=== PATIENT | male | born 1980 | race Caucasian/White ===

== ENCOUNTER 2024-04-07 03:05 | Emergency (ER) | payer SELFPAY ==
--- NOTE | ~2024-04-07 | XR_ITS ---
Portable chest x-ray Comparison: None Clinical History: Fever Findings: Lungs are clear, without focal consolidation or pleural effusion. Cardiomediastinal silho uette is unremarkable. Bones and soft tissues are unremarkable. Impression: Normal chest. Reviewed, dictated and finalized at location M. Impression: Normal chest.
[2024-04-07 03:08] VITALS: BP 117/78; PULSE 89; RESP 17; TEMP 37; O2SAT 98
[2024-04-07] MEDS: ACETAMINOPHEN 500 MG TABLET 1000 MG PO (03:50)
[2024-04-07 04:09] LABS: Influenza A QL RT-PCR Negative (Negative); Influenza B QL RT-PCR Negative (Negative); RSV RNA, RT-PCR Negative (Negative); SARS-CoV-2 RNA PCR Positive (Negative)
--- NOTE | 2024-04-07 04:14 | ED.FEVER ---
HPI - Fever General Chief Complaint: Fever Stated Complaint: fever Time Seen by Provider: 04/07/24 03:14 History of Present Illness HPI Narrative: Patient is a 43-year-old male who presents to the emergency department this morning complaining of a headache and a fever at home. Patient did not have a documented fever in our emergency department. He states the symptoms started today. Patient initially went to an urgent care prior to arrival here, however, the wait was so long so he decided to come here for further evaluation appointed he denies any additional symptoms including shortness of breath, chest pain, nausea, vomiting, abdominal pain, urinary symptoms including dysuria or hematuria. Patient admits that he has been around people that are sick with COVID. No additional symptoms or concerns at this time. Related Data Allergies Allergy/AdvReac Type Severity Reaction Status Date / Time No Known Allergies Allergy Verified 04/07/24 03:17 Review of Systems Review of Systems: All systems are reviewed and are negative unless stated otherwise in the HPI. Exam Narrative: General: Alert, awake, afebrile, in no acute distress. HEENT: PERRL, no rhinorrhea, no post nasal drip, oropharynx clear. Cardiovascular: Regular rate and rhythm, no murmurs, rubs or gallops, no peripheral edema. Respiratory: Clear to auscultation bilaterally, no tachypnea, no wheezing, no rhonchi, no rubs, no respiratory distress. Abdomen: Soft, nontender, nondistended, no rebound, no guarding, no peritoneal signs. Musculoskeletal: No joint swelling or deformity, normal muscle tone. Skin: No rashes or petechia, no signs of infection. Neurological: Alert and oriented to person, place, and time. Follows all commands. No focal deficits, speech is clear and fluent. Course Vital Signs Vital signs: Vital Signs Temperature 98.6 F 04/07/24 03:08 Pulse Rate 89 04/07/24 03:08 Respiratory Rate 17 04/07/24 03:08 Blood Pressure 117/78 04/07/24 03:08 Pulse Oximetry 98 04/07/24 03:08 Oxygen Delivery Room Air 04/07/24 03:08 Temperature 98.6 F 04/07/24 03:08 Pulse Rate 89 04/07/24 03:08 Respiratory Rate 17 04/07/24 03:08 Blood Pressure 117/78 04/07/24 03:08 Pulse Oximetry 98 04/07/24 03:08 Oxygen Delivery Room Air 04/07/24 03:08 MDM - Fever MDM Narrative Medical decision making narrative: The patient was evaluated by myself in the emergency department. History is obtained from patient who is an independent historian and physical exam was performed. External medical records were reviewed at this time. Viral swabs were obtained at this time and patient did test positive for COVID. Patient was administered 1 g of oral Tylenol for headache. Imaging studies obtained included CXR which was independently interpreted by me revealing no acute process, which is pending final radiology interpretation. Differential diagnosis considerations include acute viral syndrome including COVID/influenza/RSV and infectious process such as pneumonia. Comorbidities impacting this visit include none. I have evaluated and discussed social determinants of health with the patient that could potentially impact subsequent diagnosis and treatment plans. On repeat assessment of the patient, reevaluation revealed that the patient is doing well and is in no acute distress. Patient symptoms have improved since he arrived to our emergency department. Repeat vital signs were all reviewed and noted to be stable. Differential diagnosis and treatment plan were discussed with the patient at bedside. Patient agrees with discussion and after shared medical decision making agrees with discharge. All questions were answered to the patient's satisfaction. Patient will follow up with his PCP in 3-5 days. Patient was provided with strict return precautions and instructed to return to the emergency department if any new or worsening symptoms develop. The patient w
[2024-04-07 04:20] VITALS: TEMP 37.6
[2024-04-07 04:28] VITALS: BP 112/75; PULSE 95; RESP 18; TEMP 37.6; O2SAT 98
== END 2024-04-07 04:35 | disposition home or self-care (01) ==
PROVIDERS: Emergency Provider Emergency Medicine
DX: U07.1 COVID-19 (principal)
CPT/HCPCS: 71045; 87637; 99283; A4565; A9270

== ENCOUNTER 2024-10-25 17:12 | Observation (INO) | payer SELFPAY ==
--- NOTE | ~2024-10-25 | XR_ITS ---
XR chest 2V DATE: 10/25/2024 17:46 INDICATION: Chest pain TECHNIQUE: AP and lateral views COMPARISON: 04/07/2024 portable AP chest FINDINGS: There is minimal atelectasis or infiltrate at the lung bases. The lungs are otherwise clear . No pleural effusion or pulmonary congestion or pneumothorax. Normal heart size. No hilar or mediastinal enlargement. Minimal thoracic levoscoliosis. IMPRESSION: Minimal infiltrate or atelectasis at the lung bases Reviewed, dictated and finalized at location [facility]. ER [employer]
--- NOTE | ~2024-10-25 | CT_ITS ---
EXAMINATION: CT abdomen pelvis w con DATE: 10/27/2024 10:10 INDICATION: Cancer. TECHNIQUE: Computed tomography (CT) of the abdomen and pelvis was performed with 100 mL Omnipaque 350 intravenous contrast. Automated exposure control and iterative reconstruction technique were employe d. The dose-length product was 301.15 mGy-cm. COMPARISON: Chest CT 10/25/2024 FINDINGS: The visualized portions of lung bases demonstrate mild atelectasis. There are multiple scat tered nodules in the lungs measuring up to 7 mm. No pleural effusion. The heart size is normal. No pe ricardial effusion. The liver, gallbladder, spleen, pancreas, adrenal glands, and kidneys are normal. There are no dilated loops of bowel. The appendix is normal. There are no pathologically enlarged ly mph nodes. There is no free intraperitoneal fluid. There is a left inguinal hernia containing fat. Th ere is severe lower lumbar spondylosis. IMPRESSION: 1. Pulmonary nodules measuring up to 7 mm, which may be granulomatous disease or less likely metastat ic disease. Noncontrast low-dose chest CT is recommended in 3 months. Reviewed, dictated and finalized at location A. EXPERIENCE ARCHITECT IMPRESSION: 1. Pulmonary nodules measuring up to 7 mm, which may be granulomatous disease o r less likely metastatic disease. Noncontrast low-dose chest CT is recommended in 3 months.
--- NOTE | ~2024-10-25 | CT_ITS ---
EXAMINATION: CTA chest DATE: 10/25/2024 18:08 INDICATION: Sudden onset of right back and chest pain TECHNIQUE: Computed tomography angiography (CTA) of the chest was performed with 100 mL Omnipaque-350 intravenous contrast timed to evaluate the pulmonary arteries. Coronal maximum intensity projection 3D-reconstructions were created by the technologist. Automated exposure control and iterative reconst ruction technique were employed. Exam dose: 288.92 mGy-cm total exam DLP. COMPARISON: 10/25/2024 2 view chest FINDINGS: There is diagnostic contrast enhancement of the pulmonary arteries and no evidence of pulmo nary embolism. There are numerous scattered bilateral pulmonary nodules, the largest situated in the superior segmen t of the right lower lobe, measuring approximately 8 x 13.4 mm dimension. The remaining multiple nodu les are subcentimeter size. Differential diagnosis includes septic emboli, granulomatous or other chastity terial or fungal infectious process versus metastatic disease. There is mild bilateral dependent and basilar lower lobe atelectasis or infiltrate. Normal heart size. No pericardial or pleural effusion. No thoracic aortic aneurysm or dissection. No hilar or mediastinal mass lesion or lymphadenopathy. Normal size and homogeneous enhancement of the thyroid gland. No hepatic space-occupying mass lesion. The gallbladder is unremarkable. No bile duct or pancreatic d uct dilatation. No pancreatic mass lesion or calcification is noted. Normal morphology of the adrenal glands. No renal mass lesion or renal calculus. Normal caliber of the abdominal aorta. No upper or mid abdominal mass lesion or adenopathy or ascites . There is prominent degenerative disc disease at C6-7. No suspicious osteolytic or osteoblastic lesions are noted. IMPRESSION: No evidence of pulmonary arterial embolism Numerous bilateral pulmonary nodules; differential diagnosis includes septic emboli, or other infecti ous or metastatic process. Mild bilateral dependent and basilar lower lobe infiltrate or atelectasis Reviewed, dictated and finalized at [facility]. Reviewed, dictated and finalized at location A. RAGE STEWARD IMPRESSION: No evidence of pulmonary arterial embolism Numerous bilateral pulmonary nodules; differential diagnosis includes septic em boli, or other infectious or metastatic process. Mild bilateral dependent and basilar lower lobe infiltrate or atelectasis
--- NOTE | 2024-10-25 17:14 | ECG_ITS ---
Test Date: 2024-10-25 17:21:37 Measurements Intervals [place] Rate: 69 P: 62 AR: 152 QRS: 79 QRSD: 100 T: 67 QT: 378 QTc: 405 Interpretive Statements SINUS RHYTHM POSSIBLE LEFT ATRIAL ENLARGEMENT [-0.1mV P-WAVE IN V1/V2] No previous ECG available for comparison Electronically Signed On 10-25-2024 21:07:33 LINING FOLDER by Toby Hall M.D.
[2024-10-25 17:26] VITALS: BP 141/82; PULSE 74; RESP 14; TEMP 36.6; O2SAT 100
--- NOTE | 2024-10-25 17:28 | ED.CHESTPAIN ---
HPI - Chest Pain General Chief Complaint: Chest Pain Stated Complaint: CP Time Seen by Provider: 10/25/24 17:21 History of Present Illness HPI narrative: 44-year-old otherwise healthy male with no pertinent past medical history presenting to the emergency department for sudden-onset right-sided back pain radiating towards his chest. 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 Had to pulley worker and had some difficulty getting out of a car. Denies any cardiac history, no aortic history to his knowledge, no family history of any sudden cardiac disease or . Denies any nauseousness or vomiting but describes a pleuritic chest pain only takes deep breath. No abdominal pain, weakness in the limbs. Was otherwise in his normal state of health. Denies any car accidents, trauma or injury to the area. Related Data Allergies Allergy/AdvReac Type Severity Reaction Status Date / Time No Known Allergies Allergy Verified 04/07/24 03:17 Review of Systems Review of Systems: As reviewed above in HPI Exam Narrative: GENERAL: Uncomfortable appearing but able to answer questions, examining pleuritic chest pain, leaning forward during exam HEAD: [Normocephalic, atraumatic.] EYES: [PERRLA and EOMI.] ENT: Nares clear, no rhinorrhea or epistaxis. Mucous membranes moist. NECK: Supple. CHEST: [Clear to auscultation. No respiratory distress.] No crepitus with palpation of the chest wall, pain is nonreproducible with palpation in the chest or rib cage HEART: [Regular rate and rhythm]. No murmur heard. 2+ peripheral pulses in the upper and lower extremities, warm extremities ABDOMEN: [Soft, nondistended], [nontender], [No rigidity or guarding] EXTREMITIES: Normal range of motion. [No edema.] SKIN: Warm, dry, no rash. NEURO: [No focal deficits]. Alert and oriented [x3.] PSYCH: [Normal mood and affect.] Course Vital Signs Vital signs: Vital Signs Temperature 36.6 C 10/25/24 17: Pulse Rate 74 10/25/24 17:26 Respiratory Rate 14 10/25/24 17:26 Blood Pressure 141/82 H 10/25/24 17:26 Pulse Oximetry 100 10/25/24 17:26 Oxygen Delivery Room Air 10/25/24 17:26 Temperature 36.6 C 10/25/24 17:26 Pulse Rate 83 10/25/24 19:57 Respiratory Rate 14 10/25/24 19:57 Blood Pressure 115/79 10/25/24 19:57 Pulse Oximetry 99 10/25/24 19:57 Oxygen Delivery Room Air 10/25/24 17:40 MDM - Chest Pain MDM Narrative Medical decision making narrative: 44-year-old male with no pertinent past medical history presents with sudden-onset right-sided back pain radiating towards his chest. Nontraumatic in nature, not doing anything strenuous and was driving his car when he suddenly had the symptoms start just prior to arrival. No cardiac history to his knowledge. He has pain starting in the back radiating straight through to his chest on the right side. No left-sided symptoms. Symmetric pulses in both arms and legs with warm extremities. He appears uncomfortable and is hunched over during the examination with pain exacerbated with deep breathing. He has clear lung sounds throughout both lung sultana. No tachycardia, hypoxia fever but he is slightly hypertensive with a blood pressure 141/82. Given patient's sudden-onset symptomatology and right-sided pain without any strenuous or traumatic injury considerations present for intrathoracic process such as a pneumothorax, costochondritis, less likely ACS, acute aortic pathology or aortic syndrome also possible although he has no risk factors for this. Patient was given IV Dilaudid and Zofran as well as workup ordered with CBC, CMP, troponin, EKG, CT angiography of his chest. Patient was re-evaluated and still having pain, given morphine at this time. Workup shows no leukocytosis or anemia. Normal platelets, normal renal and hepatic function panel. Negative troponin, normal coags. Chest x-ray shows potential bibasilar infiltrates versus atelectasis at the bases. Overall no solitary consolidations congestion or pneumothorax. Confirmed by Radiology. CT angiography shows no evidence of pulmonary arterial embolism but there are numerous bilateral pulmonary nodules measuring up to 8 x 13 mm and multiple subcentimeter sized nodules. Radiology's differential included septic emboli versus infectious process such as bacteria or fungal infection versus granulomatous process versus metastatic disease. There is also mild bilateral basilar infiltrates or atelectasis. Patient was started on vancomycin ceftriaxone at this time. Blood cultures ordered. Echo ordered. HIV and MRSA swabs. I discussed with the patient potential etiologies for his lung nodules. He denies any recent weight loss, weight gain, pain anywhere else or any other recent symptoms. He according to himself has been otherwise in his normal state of health. He does admit to smoking methamphetamine last week but denies adamantly any injection drug use IV drug use or any history of intravenous injections. He states he has not left the country recently or had any travel. 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 I did discuss the case with Dr. Barrow over the phone from pulmonology. We went over patient's imaging studies, clinical assessment and plan of care. Recommendations or continued workup for potential endocarditis as we have initiated here in the emergency department. I spoke with the hospitalist Dr. Anderson over the phone and relayed all the above information and clinical assessment. Patient will be admitted to a telemetry monitored bed here in the hospital and patient was agreeable to admission at this time. Blood cultures were drawn prior to IV antibiotics and we also added on a urine drug screen and COVID flu influenza swabs. Medical Records Data Attestation: I reviewed the patient's medical records. Lab Data Attestation: I reviewed the patient's lab results. 10/25/24 17:27 10/25/24 17:27 Labs: Lab Results 10/25/24 Range/Units 17:27 WBC 8.3 (4.5-10.0) K/mm3 RBC 5.00 (4.6-6.20) M/mm3 Hgb 15.4 (14.0-18.0) g/dL Hct 45.9 (42.0-52.0) % MCV 91.8 (80-100) fl MCH 30.8 (26-34) pg MCHC 33.6 (32-36) g/dl RDW 12.3 (11.5-14.5) % Plt Count 327 (150-375) k/mm3 MPV 9.1 (7.4-10.4) fl Immature Gran % (Auto) 0.1 (0-0.5) % Neut % (Auto) 65.6 (45.5-73.1) % Lymph % (Auto) 22.2 (18.3-44.2) % [place] % (Auto) 8.9 H (2.6-8.5) % Eos % (Auto) 2.7 (0-4.4) % Baso % (Auto) 0.5 (0.2-1.2) % Lymph # (Auto) 1.84 (0.9-3.2) K/mm3 [place] # (Auto) 0.7 H (0.1-0.6) K/mm3 Eos # (Auto) 0.2 (0-0.3) K/mm3 Baso # (Auto) 0.0 (0.0-0.1) K/mm3 Abs Immat Gran (auto) 0.01 (0.00-0.031) K/mm3 Absolute Neuts (auto) 5.4 (1.3-6.7) K/mm3 Absolute Nucleated RBC 0.000 (0.0-0.012) K/mm3 Nucleated RBC % 0.0 (0.0-0.2) % PT 12.7 (11.1-14.7) Seconds INR 0.9 APTT 28.2 (22.3-36.8) Seconds Sodium 138 (137-145) mmol/L Potassium 4.5 (3.4-5.0) mmol/L Chloride 104 (98-107) mmol/L Carbon Dioxide 33 H (22-30) mmol/L Anion Gap 1 L (4-12) mmol/L BUN 13 (9-20) mg/dL Creatinine 1.00 (0.7-1.3) mg/dL Estim Creat Clear Calc 80 ml/min Estimated GFR > 60 (59 - ) Glucose 98 (65-110) mg/dL Calcium 9.0 (8.4-10.2) mg/dL Total Bilirubin 0.5 (0.2-1.3) mg/dL AST 27 (17-59) U/L ALT 17 (6-50) U/L Alkaline Phosphatase 76 (38-126) U/L Troponin I < 0.012 (0.000-0.034) ng/mL Total Protein 7.0 (6.3-8.2) g/dL Albumin 4.3 (3.5-5.1) g/dL Lipase 98 (23-300) U/L Imaging Data Attestation: I personally reviewed and interpreted this imaging study as follows: My impression: Impressions Chest X-Ray 10/25/24 17:57 IMPRESSION: Minimal infiltrate or atelectasis at the lung bases Chest CTA 10/25/24 18:26 IMPRESSION: No evidence of pulmonary arterial embolism Numerous bilateral pulmonary nodules; differential diagnosis includes septic emboli, or other infectious or metastatic process. Mild bilateral dependent and basilar lower lobe infiltrate or atelectasis ECG Data EKG #1: Attestation: I personally reviewed and interpreted this ECG as follows: ECG completion date: 10/25/24 ECG completion time: 17:21 Prior ECG tracings: not available for review Interpretation: Regular rate rhythm an axis, no ST segment elevations, depressions or inversions. No ectopy. QTC 405, QRS 100, ID interval 152 otherwise within normal limits. No STEMI. Normal sinus rhythm, no previous EKG for comparison. Discharge Plan Discharge Clinical Impression: Atypical chest pain, Chest pain, pleuritic, Pulmonary nodules/lesions, multiple, Methamphetamine use Patient Disposition: Still a Patient Condition: Stable Patient Language: Ivorian Follow-up/Referrals: PHYSICIAN,RD PROJECT MANAGER [Primary Care Provider] - Time of Disposition: 19:59
[2024-10-25 17:33] LABS: Basophils Percent Auto 0.5 % (0.2-1.2); Eosinophils Absolute Auto 0.2 K/mm3 (0-0.3); Eosinophils Percent Auto 2.7 % (0-4.4); Hematocrit 45.9 % (42.0-52.0); Hemoglobin 15.4 g/dL (14.0-18.0); Immature Granulocyte Absolute 0.01 K/mm3 (0.00-0.031); Immature Granulocyte Percent A 0.1 % (0-0.5); Lymphocytes Absolute Auto 1.84 K/mm3 (0.9-3.2); Lymphocytes Percent Auto 22.2 % (18.3-44.2); Mean Corpuscular HGB Conc 33.6 g/dl (32-36); Mean Corpuscular Hemoglobin 30.8 pg (26-34); Mean Corpuscular Volume 91.8 fl (80-100); Mean Platelet Volume 9.1 fl (7.4-10.4); Monocytes Absolute Auto 0.7 K/mm3 (0.1-0.6); Monocytes Percent Auto 8.9 % (2.6-8.5); Neutrophils Absolute Auto 5.4 K/mm3 (1.3-6.7); Neutrophils Percent Auto 65.6 % (45.5-73.1); Platelet Count Result 327 k/mm3 (150-375); Red Cell Distribution Width 12.3 % (11.5-14.5); White Blood Count 8.3 K/mm3 (4.5-10.0)
[2024-10-25] MEDS: HYDROmorphone HCL INJ (*CRX) 1 MG/ML SYR 0.5 MG IV PUSH ×2 (17:33→23:57)
[2024-10-25] MEDS: ONDANSETRON INJ 4 MG/2 ML VIAL IV PUSH (17:33)
[2024-10-25 17:44] LABS: Alanine Aminotransferase 17 U/L (6-50); Albumin Level 4.3 g/dL (3.5-5.1); Alkaline Phosphatase 76 U/L (38-126); Anion Gap 1 mmol/L (4-12); Aspartate Amino Transferase 27 U/L (17-59); Bilirubin,Total 0.5 mg/dL (0.2-1.3); Blood Urea Nitrogen 13 mg/dL (9-20); Carbon Dioxide 33 mmol/L (22-30); Chloride 104 mmol/L (98-107); Estimated CRCL calculation 80 ml/min; Estimated Glomerular Filt Rate > 60; Glucose 98 mg/dL (65-110); Lipase 98 U/L (23-300); Potassium 4.5 mmol/L (3.4-5.0); Sodium 138 mmol/L (137-145)
[2024-10-25 17:45] LABS: INR 0.9; Partial Thromboplastin Time 28.2 Seconds (22.3-36.8); Prothrombin Time 12.7 Seconds (11.1-14.7)
[2024-10-25 17:55] LABS: Troponin I < 0.012 ng/mL (0.000-0.034)
[2024-10-25 18:21] VITALS: BP 120/86; PULSE 79; RESP 16; O2SAT 99
--- NOTE | 2024-10-25 19:03 | PC.NURSE ---
Pt requesting some water. made aware. Dr. Hines gave permission for pt to drink water.
[2024-10-25] MEDS: MORPHINE SULFATE (*CRX) 4 MG/ML INJ IV PUSH (19:43)
[2024-10-25] MEDS: VANCOMYCIN 1,750 MG/NS 500 ML 1,750 MG/500 ML BAG 250 MG IVPB (19:55)
[2024-10-25 19:57] VITALS: BP 115/79; PULSE 83; RESP 14; O2SAT 99
[2024-10-25 20:00] VITALS: BP 120/74; PULSE 62; RESP 18; TEMP 36.6; O2SAT 100
[2024-10-25 20:46] LABS: Influenza A QL RT-PCR Negative (Negative); Influenza B QL RT-PCR Negative (Negative); RSV RNA, RT-PCR Negative (Negative); SARS-CoV-2 RNA PCR Negative (Negative)
[2024-10-25 21:23] LABS: MRSA (PCR) NOT DETECTED (NOT DETECTE)
[2024-10-25 21:40] VITALS: BMI 24.5
--- NOTE | 2024-10-25 21:52 | ADMGEN ---
This patient, Yeyo Cornell, was admitted to Medical Room 349-01. Patient/family oriented to hospital policies and general routines including ID bracelet, bed and alarms, visiting hours, pain management, procedures, bathroom and other care routines, personal items, smoking policy, room service/diet, and visiting hours. Information on how to activate the Rapid Response Team has been discussed. Patient/Family are encouraged to report perceived risks to care and to ask questions if they do not understand what they are told or what they should do.
[2024-10-25 22:26] LABS: Troponin I < 0.012 ng/mL (0.000-0.034)
[2024-10-25] MEDS: NICOTINE (*PBKC) 21 MG PATCH 1 PATCH TRANSDERM (22:47)
--- NOTE | 2024-10-25 23:13 | P.HP_ITS ---
H&P: HPI History of Present Illness Date/Time: 10/25/24 23:13 Chief Complaint: Chest pain Narrative: 44-year-old male with a past medical history of methamphetamine abuse but is otherwise previously healthy who presented to the ER with chest pain that started when he was driving to work. The patient reports that he was in his usual state of health when he suddenly developed pain in his right upper back that radiated to his right chest. The pain is worse with deep breathing but more so when he tries to exhale completely. He reports that if pain becomes quite severe when he tries to blow out all of his air. He has not had any associated cough, congestion, fevers or chills. He denies any known injury. 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 He reports the pain is a 10/10 in intensity. It is worse with certain movements. It is not worse with palpation of the chest. But it has acute reproducibility when palpated just medial to the right scapula scapula at the level of about the 5th rib/vertebrae. He denies any recent rashes, abscess is or known infection. He does smoke methamphetamine intermittently with his last use about a week ago. He adamantly denies IV drug use. He states that he has smoked methamphetamines on and off for 20 years. He has smoked about a pack of cigarettes per day since he was a young teenager. Review of Systems 2 Review of Systems: 12 systems were reviewed with pertinent positives and negatives per HPI. Except as documented in the HPI, all other systems were reviewed and are negative. [facility] Past Medical History Medical History (Updated 10/26/24 @ 02:28 by Kelsey Anderson DO) Continuous tobacco abuse Methamphetamine use Surgical History Surgical History (Updated 10/26/24 @ 02:20 by Kelsey Anderson DO) History of repair of right rotator cuff Status post open reduction with internal fixation of fracture Right wrist Family History Family History (Updated 10/26/24 @ 02:21 by Kelsey Anderson DO) Mother Healthy female adult Father Healthy adult male Social History Social History (Updated 10/26/24 @ 02:23 by Kelsey Anderson DO) Social History: Patient is . He lives alone. 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 He has an adult daughter and a son. He has smoked about a pack of cigarettes per day since he was young teenager. He has smoked methamphetamines intermittently for the last 20 years. He denies any significant/heavy alcohol use. Code status: Full code Smoking packs per day: 1 Smoking cigarettes per day: 20.0 Years smoked: 28 Smoking pack-years: 28.00 Smoking status: Current every day smoker Tobacco type: cigarettes Alcohol intake: never Substance use type: methamphetamine Do You Feel Safe in your Home?: Yes Lack of Transportation: No Lack of Food: Never True Current Housing: I Have Housing Concerned About Future Housing: No Difficulty Paying Gas/Electric Bills: No Difficulty Paying for Meds: No Currently Unemployed: No Education: Associate Degree Difficulty w/ Childcare or Family Care: No Spiritual care concerns: No Meds Home Medications and Allergies Home Medications ?Medication ?Instructions ?Recorded ?Confirmed ?Type No Home Medications 10/25/24 10/25/24 History Allergies Allergy/AdvReac Type Severity Reaction Status Date / Time No Known Allergies Allergy Verified 04/07/24 03:17 Vital Signs Vital Signs - 24 hr 10/25/24 17:26 10/25/24 17:40 10/25/24 18:21 Temperature 98 F Pulse Rate 74 79 Respiratory Rate 14 16 Blood Pressure 141/82 H 120/86 Pulse Oximetry 100 99 Oxygen Delivery Room Air Room Air 10/25/24 19:57 10/25/24 20:00 Temperature 97.9 F Pulse Rate 83 62 Respiratory Rate 14 18 Blood Pressure 115/79 120/74 Pulse Oximetry 99 100 Oxygen Delivery Exam 2 Narrative: Weight 73 kg BMI 24.5 Const: Other: No acute distress, well-developed well-nourished, appears stated age HENMT: Other: Mucous membranes are moist, no oral pharyngeal erythema, head is normocephalic atraumatic Eyes: Other: Pupils are equal and reactive, no scleral icterus, no conjunctival pallor Neck: Other: No JVD, no lymphadenopathy, no thyromegaly Chest: Other: No reproducible tenderness to palpation of anterior chest Resp: Other: Clear to auscultation bilaterally no increased work of breathing, no tachypnea Cardio: Other: Regular rate, regular rhythm, 2+ bilateral radial pedal pulses, no murmur GI: Other: Soft, nontender, nondistended, positive bowel sounds Back/Spine/Pelvis: Other: Acutely localized tenderness of approximately the 4th rib just medial to the medial scapular border at this level with worsening of the pain with palpation, no paraspinous tenderness, no spinous process tenderness, no evidence of acute injury or external trauma Skin: Other: Tattoo on the left shoulder blade, left upper arm, dark staining in oil/engine degrees under the nail beds of the hands and the palmar surfaces of the hands Neuro: Other: Alert orient x4, speech is clear, no facial asymmetry, no localizing neurologic deficits noted during the course of conversation Extrem: Other: No clubbing, cyanosis or edema, well-muscled, equal strength in all extremities Psych: Other: Mildly anxious, otherwise appropriate mood and affect, pleasant and cooperative H&P: Results Labs Labs: Laboratory Tests 10/25/24 17:27 10/25/24 17:27 10/25/24 10/25/24 10/25/24 17: 19:56 19:57 WBC 8.3 RBC 5.00 Hgb 15.4 Hct 45.9 MCV 91.8 MCH 30.8 MCHC 33.6 RDW 12.3 Plt Count 327 MPV 9.1 Immature Gran % (Auto) 0.1 Neut % (Auto) 65.6 Lymph % (Auto) 22.2 [place] % (Auto) 8.9 H Eos % (Auto) 2.7 Baso % (Auto) 0.5 Lymph # (Auto) 1.84 [place] # (Auto) 0.7 H Eos # (Auto) 0.2 Baso # (Auto) 0.0 Abs Immat Gran (auto) 0.01 Absolute Neuts (auto) 5.4 Absolute Nucleated RBC 0.000 Nucleated RBC % 0.0 PT 12.7 INR 0.9 APTT 28.2 Sodium 138 Potassium 4.5 Chloride 104 Carbon Dioxide 33 H Anion Gap 1 L BUN 13 Creatinine 1.00 Estim Creat Clear Calc 80 Estimated GFR > 60 Glucose 98 Calcium 9.0 Total Bilirubin 0.5 AST 27 ALT 17 Alkaline Phosphatase 76 Troponin I < 0.012 Total Protein 7.0 Albumin 4.3 Lipase 98 Nasal MRSA (PCR) Not detected HIV-1 RNA logcopies/mL Pending HIV-1 RNA PCR copies/ml Pending Influenza A (RT-PCR) Influenza B (RT-PCR) RSV (RT-PCR) SARS-CoV-2 RNA (RT-PCR) 10/25/24 10/25/24 20:00 21:57 WBC RBC Hgb Hct MCV MCH MCHC RDW Plt Count MPV Immature Gran % (Auto) Neut % (Auto) Lymph % (Auto) [place] % (Auto) Eos % (Auto) Baso % (Auto) Lymph # (Auto) [place] # (Auto) Eos # (Auto) Baso # (Auto) Abs Immat Gran (auto) Absolute Neuts (auto) Absolute Nucleated RBC Nucleated RBC % PT INR APTT Sodium Potassium Chloride Carbon Dioxide Anion Gap BUN Creatinine Estim Creat Clear Calc Estimated GFR Glucose Calcium Total Bilirubin AST ALT Alkaline Phosphatase Troponin I < 0.012 Total Protein Albumin Lipase Nasal MRSA (PCR) HIV-1 RNA logcopies/mL HIV-1 RNA PCR copies/ml Influenza A (RT-PCR) Negative Influenza B (RT-PCR) Negative RSV (RT-PCR) Negative SARS-CoV-2 RNA (RT-PCR) Negative Laboratory Tests 10/25/24 17:27 10/25/24 17:27 10/25/24 10/25/24 10/25/24 17:27 19:56 19:57 WBC 8.3 RBC 5.00 Hgb 15.4 Hct 45.9 MCV 91.8 MCH 30.8 MCHC 33.6 RDW 12.3 Plt Count 327 MPV 9.1 Immature Gran % (Auto) 0.1 Neut % (Auto) 65.6 Lymph % (Auto) 22.2 [place] % (Auto) 8.9 H Eos % (Auto) 2.7 Baso % (Auto) 0.5 Lymph # (Auto) 1.84 [place] # (Auto) 0.7 H Eos # (Auto) 0.2 Baso # (Auto) 0.0 Abs Immat Gran (auto) 0.01 Absolute Neuts (auto) 5.4 Absolute Nucleated RBC 0.000 Nucleated RBC % 0.0 PT 12.7 INR 0.9 APTT 28.2 Sodium 138 Potassium 4.5 Chloride 104 Carbon Dioxide 33 H Anion Gap 1 L BUN 13 Creatinine 1.00 Estim Creat Clear Calc 80 Estimated GFR > 60 Glucose 98 Calcium 9.0 Total Bilirubin 0.5 AST 27 ALT 17 Alkaline Phosphatase 76 Troponin I < 0.012 Total Protein 7.0 Albumin 4.3 Lipase 98 Nasal MRSA (PCR) Not detected HIV-1 RNA logcopies/mL Pending HIV-1 RNA PCR copies/ml Pending Influenza A (RT-PCR) Influenza B (RT-PCR) RSV (RT-PCR) SARS-CoV-2 RNA (RT-PCR) 10/25/24 10/25/24 20:00 21:57 WBC RBC Hgb Hct MCV MCH MCHC RDW Plt Count MPV Immature Gran % (Auto) Neut % (Auto) Lymph % (Auto) [place] % (Auto) Eos % (Auto) Baso % (Auto) Lymph # (Auto) [place] # (Auto) Eos # (Auto) Baso # (Auto) Abs Immat Gran (auto) Absolute Neuts (auto) Absolute Nucleated RBC Nucleated RBC % PT INR APTT Sodium Potassium Chloride Carbon Dioxide Anion Gap BUN Creatinine Estim Creat Clear Calc Estimated GFR Glucose Calcium Total Bilirubin AST ALT Alkaline Phosphatase Troponin I < 0.012 Total Protein Albumin Lipase Nasal MRSA (PCR) HIV-1 RNA logcopies/mL HIV-1 RNA PCR copies/ml Influenza A (RT-PCR) Negative Influenza B (RT-PCR) Negative RSV (RT-PCR) Negative SARS-CoV-2 RNA (RT-PCR) Negative Impressions Chest X-Ray 10/25/24 17:57 IMPRESSION: Minimal infiltrate or atelectasis at the lung bases Chest CTA 10/25/24 18:26 IMPRESSION: No evidence of pulmonary arterial embolism Numerous bilateral pulmonary nodules; differential diagnosis includes septic emboli, or other infectious or metastatic process. Mild bilateral dependent and basilar lower lobe infiltrate or atelectasis EKG: Measurements Intervals [place] Rate: 69 P: 62 NC: 152 QRS: 79 QRSD: 100 T: 67 QT: 378 QTc: 405 Interpretive Statements SINUS RHYTHM POSSIBLE LEFT ATRIAL ENLARGEMENT [-0.1mV P-WAVE IN V1/V2] No previous ECG available for comparison All imaging and EKGs personally reviewed and interpreted. And unless stated otherwise agree with radiologic and cardiology interpretation. Assessment and Plan Assessment and plan (1) Chest pain, pleuritic: Code(s): R07.81 - Pleurodynia Status: Acute (2) Atypical chest pain: Code(s): R07.89 - Other chest pain Status: Acute (3) Acute upper back pain: Code(s): M54.9 - Dorsalgia, unspecified Status: Acute (4) Methamphetamine use: Code(s): F15.10 - Other stimulant abuse, uncomplicated Status: Acute (5) Pulmonary nodules/lesions, multiple: Code(s): R91.8 - Other nonspecific abnormal finding of lung field Status: Acute (6) Continuous tobacco abuse: Code(s): Z72.0 - Tobacco use Status: Acute Plan The patient has atypical/plan pleuritic chest pain is worse with expiration. Pain is more on the right side in localized more to the pinpoint location of the medial right scapula at about the level of the 4th or 5th rib just lateral to the rib head just medial to the scapula. This seems to be more musculoskeletal nature. Possibly some costochondritis or acute connective tissue injury. Patient has been ruled out for cardiac ischemia with 2- sets of troponins. Patient's rate is normal on telemetry. EKG was reviewed. Initially was thought that the patient's pulmonary nodules could be due to septic pulmonary emboli although given the localization of the patient's pain to the back in clearly reproducible nature of the pain this seems less likely reason for the patient's symptoms. He is not having any associated cough, congestion or preceding shortness of breath. He does have atelectasis versus infiltrate on the CT but again patient is trying to not take deep breaths because he feels he cannot exhale completely. This is likely due to atelectasis. However until blood cultures are returned negative patient is being treated empirically with Rocephin and vancomycin. Will place patient on Toradol IV q.6 hours scheduled for 24 hours. Will provide Dilaudid 0.4 mg for breakthrough pain. Will order [place] for pain 4-10. The patient does smoke a pack of cigarettes per day. He requested nicotine patch which has been provided. He is not interested in smoking cessation information. Patient admits to methamphetamine abuse. He did produce a urine specimen in the ER but it was not sent for this testing that had been ordered. Urine drug screen has been ordered. Will also check urine for urine Legionella and pneumococcal antigen although this is less likely. Quality VTE Prophylaxis VTE prophylaxis: pharmacologic ordered (Lovenox 40 mg subQ daily.) Hospitalist [facility] Advance Care Plan I have confirmed that the patient's Advanced Care Plan is present, code status is documented, or surrogate decision maker is listed in patient medical record.: Yes Medication Reconciliation I have utilized all available resources to obtain, update and review the patients current medications (includes all prescriptions, OTC, herbals, cannabis, and nutritional supplements).: Yes
[2024-10-26] VITALS (9 sets, daily range): BP systolic 96–114; BP diastolic 62–80; PULSE 66–677; RESP 16–20; TEMP 36.4–36.7; O2SAT 97–100
[2024-10-26 01:32] LABS: Troponin I < 0.012 ng/mL (0.000-0.034)
[2024-10-26 01:50] LABS: Procalcitonin 0.1 ng/mL
[2024-10-26 04:00] LABS: Barbiturate Screen Urine Negative (Negative); Benzodiazepines Screen Urine Negative (Negative)
[2024-10-26 04:04] LABS: Cannabinoid Screen Urine Negative (Negative); Cocaine Screen Urine Negative (Negative); Methadone Screen Urine Negative (Negative); Opiate Screen Urine Positive (Negative); Phencyclidine Screen Urine Negative (Negative)
[2024-10-26 04:57] LABS: Amphetamine Screen Urine Positive (Negative)
[2024-10-26 05:38] LABS: Basophils Percent Auto 0.1 % (0.2-1.2); Eosinophils Absolute Auto 0.2 K/mm3 (0-0.3); Eosinophils Percent Auto 3.1 % (0-4.4); Hematocrit 46.6 % (42.0-52.0); Hemoglobin 14.9 g/dL (14.0-18.0); Immature Granulocyte Absolute 0.02 K/mm3 (0.00-0.031); Immature Granulocyte Percent A 0.3 % (0-0.5); Lymphocytes Absolute Auto 0.82 K/mm3 (0.9-3.2); Lymphocytes Percent Auto 10.5 % (18.3-44.2); Mean Platelet Volume 9.1 fl (7.4-10.4); Monocytes Absolute Auto 0.4 K/mm3 (0.1-0.6); Monocytes Percent Auto 4.9 % (2.6-8.5); Neutrophils Absolute Auto 6.4 K/mm3 (1.3-6.7); Neutrophils Percent Auto 81.1 % (45.5-73.1); Platelet Count Result 285 k/mm3 (150-375); Red Blood Count 4.96 M/mm3 (4.6-6.20); Red Cell Distribution Width 12.4 % (11.5-14.5); White Blood Count 7.8 K/mm3 (4.5-10.0)
[2024-10-26 05:52] LABS: Alanine Aminotransferase 14 U/L (6-50); Albumin Level 3.5 g/dL (3.5-5.1); Alkaline Phosphatase 67 U/L (38-126); Anion Gap -1 mmol/L (4-12); Aspartate Amino Transferase 23 U/L (17-59); Bilirubin,Total 0.3 mg/dL (0.2-1.3); Blood Urea Nitrogen 11 mg/dL (9-20); Calcium 8.3 mg/dL (8.4-10.2); Carbon Dioxide 31 mmol/L (22-30); Chloride 106 mmol/L (98-107); Estimated CRCL calculation 80 ml/min; Estimated Glomerular Filt Rate > 60; Glucose 153 mg/dL (65-110); Potassium 3.9 mmol/L (3.4-5.0); Sodium 136 mmol/L (137-145)
[2024-10-26] MEDS: KETOROLAC 30 MG/ML VIAL (*BKC) IV PUSH ×3 (06:18→18:24)
[2024-10-26 07:50] LABS: CRP < 0.5 mg/dL (<1.0)
[2024-10-26 07:55] LABS: NT Pro B Type Natriuretic Pept < 20 pg/mL (19.9-100)
[2024-10-26] MEDS: NICOTINE (*PBKC) 21 MG PATCH 1 PATCH TRANSDERM (08:16)
[2024-10-26] MEDS: LIDOCAINE 5% PATCH 1 PATCH TRANSDERM (08:16)
[2024-10-26] MEDS: VANCOMYCIN 1,250 MG/NS 250 ML 1,250 MG/250 ML BAG 166.67 MG IVPB ×2 (08:16→20:56)
[2024-10-26] MEDS: ENOXAPARIN 40 MG/0.4 ML SYRINGE SUB-Q (08:19)
--- NOTE | 2024-10-26 10:35 | P.CONPL_ITS ---
Assessment and Plan Assessment and plan (1) Pulmonary nodules/lesions, multiple: Code(s): R91.8 - Other nonspecific abnormal finding of lung field Status: Acute Assessment and Plan: 44-year-old with a history of chronic methamphetamine use, chronic tobacco use prevents with musculoskeletal and pleuritic back pain with no infectious complaints. chronic untreated dental caries. CT angiogram is negative for pulmonary embolism or aortic pathology. He has multiple relatively small bilateral nodules throughout the lungs with no evidence of bullous emphysema, interstitial lung disease, bronchiectasis or pleural disease. COVID influenza and RSV RT PCR studies negative. Procalcitonin is 0.1, CRP is less than 0.5. He is making no phlegm. Etiology of patient's nodules include: Septic emboli, chronic methamphetamine use, metastatic cancer, bacterial pneumonia infection. 10/26/24: plan: Agree with empiric treatment of possible endocarditis. Currently is on ceftriaxone and vancomycin. Echocardiogram has been ordered. Follow blood cultures. Regarding possibility of metastatic cancer: patient received a dye load on 10/25/2024. I would like to perform us CT scan of the abdomen and pelvis with oral and IV contrast on 10/27/2024 to assess for any cancer. Regarding the possibility of pneumonia: HIV is pending. I will send the extended respiratory pathogen panel, mycoplasma IgM. urine Legionella and urine pneumococcal pending. I will add levofloxacin to his vancomycin and ceftriaxone (both day 2) to treat for community-acquired pneumonia. pain is improved with Toradol 30 mg IV q.6, lidocaine patch, Dilaudid p.r.n.. Discussed with Donna Perkins, will follow with you. History of Present Illness History of Present Illness Consult date: 10/26/24 Chief complaint: Chest pain, Septic emboli, Pneumonia Narrative: 10/26/2024: This is a new pulmonary consult for multiple pulmonary nodules. 44-year-old with a history of allergic rhinitis for years, chronic dental caries and may be an oral abscess x1 treated with antibiotics, tobacco use, and intermittent methamphetamine use. Patient on no home medicines, does not see physicians and with no chronic health issues other than seasonal related sinus congestion for many years. He takes no medicine for this. The patient is a current tobacco user from age 24 to current at 1 pack per day he was also exposed to secondhand smoke through both of his wives up until 2 years ago. Patient denies vaping, marijuana use, cocaine use or heroin use. The patient states he smokes methamphetamine 1 to 2 times a week for the last 20 years and his last use was approximately 1 week ago. 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 He says he does not work on his best S breaks but does occasionally well that 1 time a month. He denies sandblasting, professional painting, steel hammer mill operator, coal mining, concrete work or construction work. 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 patient was at rest and noted sharp pain in his back that radiated to his front worse with any movement and worse with deep breathing. He denied cough, fever, chills, rigors, phlegm production, hemoptysis. patient presented to the emergency department and had a blood pressure 141/82, heart rate 74, respirations 14, room air saturations 100%. He had a temperature of 37.6?. White blood cell count was 8.3 with eosinophils 2.7 equals 224 per micro L, creatinine 1.0, serum bicarbonate 33, troponin negative x3, COVID, influenza and RSV RT PCR negative. Nasal swab for MRSA negative. Chest x-ray demonstrated minimal lower lobe infiltrates which was new since 04/07/2024 when his chest x- ray was clear. CT angiogram of the chest showed no pulmonary embolism, no aortic abnormalities, mild dependent atelectasis, multiple bilateral pulmonary nodules the largest was 1.3 cm. There is no evidence of interstitial lung disease, bronchiectasis or pleural disease. Patient was treated for possible endocarditis with ceftriaxone and vancomycin. His pain was treated with Toradol and Dilaudid. 10/26/2024. The patient states his pain only occurs with movement and deep breathing and that overall it is improved since yesterday but still present. he is afebrile. His white blood cell count is 7.8, creatinine 1.0, procalcitonin 0.1, CRP less than 0.5, BNP less than 20 DATA: 10/25/24: EXAMINATION: CTA chest INDICATION: Sudden onset of right back and chest pain COMPARISON: 10/25/2024 2 view chest FINDINGS: There is diagnostic contrast enhancement of the pulmonary arteries and no evidence of pulmonary embolism. There are numerous scattered bilateral pulmonary nodules, the largest situated in the superior segment of the right lower lobe, measuring approximately 8 x 13.4 mm dimension. The remaining multiple nodules are subcentimeter size. Differential diagnosis includes septic emboli, granulomatous or other bacterial or fungal infectious process versus metastatic disease. There is mild bilateral dependent and basilar lower lobe atelectasis or infiltrate. Normal heart size. No pericardial or pleural effusion. No thoracic aortic aneurysm or dissection. No hilar or mediastinal mass lesion or lymphadenopathy. Normal size and homogeneous enhancement of the thyroid gland. No hepatic space-occupying mass lesion. The gallbladder is unremarkable. No bile duct or pancreatic duct dilatation. No pancreatic mass lesion or calcification is noted. Normal morphology of the adrenal glands. No renal mass lesion or renal calculus. Normal caliber of the abdominal aorta. No upper or mid abdominal mass lesion or adenopathy or ascites. There is prominent degenerative disc disease at C6-7. No suspicious osteolytic or osteoblastic lesions are noted. IMPRESSION: No evidence of pulmonary arterial embolism Numerous bilateral pulmonary nodules; differential diagnosis includes septic emboli, or other infectious or metastatic process. Mild bilateral dependent and basilar lower lobe infiltrate or atelectasis Review of Systems 2 Constitutional: Constitutional: Reports no additional constitutional complaints Eyes: Eyes: Reports no additional eye complaints ENT: Reports system reviewed and no additional complaints, except as documented Cardiovascular: Cardiovascular: Reports no additional cardiovascular complaints Respiratory: Respiratory: Reports no additional respiratory complaints Gastrointestinal: Gastrointestinal: Reports no additional gastrointestinal complaints Musculoskeletal: Musculoskeletal: Reports no additional musculoskeletal complaints Neurologic: Reports system reviewed and no additional complaints, except as documented Psychiatric: Psychiatric: Reports no additional psychiatric complaints Endocrine: Endocrine: Reports no additional endocrine complaints Hematologic/Lymphatic: Hematologic/Lymphatic: Reports no additional hematologic/lymphatic complaints Allergic/Immunologic: Allergic/Immunologic: Reports no additional allergic/immunologic complaints COUNT INCLUDES THE [facility] Past Medical History Medical History (Updated 10/26/24 @ 02:28 by Kelsey Anderson DO) Continuous tobacco abuse Methamphetamine use Surgical History Surgical History (Updated 10/26/24 @ 02:20 by Kelsey Anderson DO) History of repair of right rotator cuff Status post open reduction with internal fixation of fracture Right wrist Family History Family History (Updated 10/26/24 @ 02:21 by Kelsey Anderson DO) Mother Healthy female adult Father Healthy adult male Social History Social History (Updated 10/26/24 @ 02:23 by Kelsey Anderson DO) Social History: Patient is . He lives alone. 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 He has an adult daughter and a son. He has smoked about a pack of cigarettes per day since he was young teenager. He has smoked methamphetamines intermittently for the last 20 years. He denies any significant/heavy alcohol use. Code status: Full code Smoking packs per day: 1 Smoking cigarettes per day: 20.0 Years smoked: 28 Smoking pack-years: 28.00 Smoking status: Current every day smoker Tobacco type: cigarettes Alcohol intake: never Substance use type: methamphetamine Do You Feel Safe in your Home?: Yes Lack of Transportation: No Lack of Food: Never True Current Housing: I Have Housing Concerned About Future Housing: No Difficulty Paying Gas/Electric Bills: No Difficulty Paying for Meds: No Currently Unemployed: No Education: Associate Degree Difficulty w/ Childcare or Family Care: No Spiritual care concerns: No Meds Home Medications and Allergies Home Medications ?Medication ?Instructions ?Recorded ?Confirmed ?Type No Home Medications 10/25/24 10/25/24 History Allergies Allergy/AdvReac Type Severity Reaction Status Date / Time No Known Allergies Allergy Verified 04/07/24 03:17 Vital Signs Vital Signs - 24 hr 10/25/24 17:26 10/25/24 17:40 10/25/24 18:21 Temperature 36.6 C Pulse Rate 74 79 Respiratory Rate 14 16 Blood Pressure 141/82 H 120/86 Pulse Oximetry 100 99 Oxygen Delivery Room Air Room Air 10/25/24 19:57 10/25/24 20:00 10/26/24 00:23 Temperature 36.6 C Pulse Rate 83 62 79 Respiratory Rate 14 18 Blood Pressure 115/79 120/74 Pulse Oximetry 99 100 Oxygen Delivery 10/26/24 04:00 10/26/24 04:00 10/26/24 08:00 Temperature 36.7 C Pulse Rate 68 66 Respiratory Rate 20 Blood Pressure 96/64 L Pulse Oximetry 97 Oxygen Delivery Room Air 10/26/24 08:00 10/26/24 08:51 Temperature 36.4 C L Pulse Rate 677 H 67 Respiratory Rate 16 Blood Pressure 108/62 Pulse Oximetry 100 Oxygen Delivery Exam 2 Const: General: cooperative, healthy appearing and comfortable O rientation/consciousness: oriented to person, oriented to place and oriented to time HENMT: Head: normal to inspection Ears: hearing grossly normal bilaterally Other: patient with multiple missing teeth, teeth that her sheared off at the gum line, active large caries in some teeth without any external jaw discomfort or swelling and no evidence of gum line tenderness or abscess on palpation. Eyes: General: appearance normal, both eyes and all related structures Neck: Neck: normal visual inspection Chest: Chest palpation & inspection: normal inspection of the chest Resp: Effort & Inspection: normal respiratory effort and able to speak in complete sentences Auscultation: no crackles, no rales, no rhonchi, no wheezes and lung sounds not diminished Other: Few basilar crackles. Cardio: Jugular venous distension: no JVD GI: Inspection: normal to inspection GI Palp: No abdominal tenderness Skin: General skin exam: normal color Neuro: General: oriented to person, oriented to place and oriented to time Other: Nonfocal Extrem: General: normal to inspection Psych: Appearance: grossly normal Results Laboratory Findings 10/26/24 05:31 10/26/24 05:31 ABG, PT/INR, D-dimer: PT/INR, D-dimer PT 12.7 Seconds (11.1-14.7) 10/25/24 17:27 INR 0.9 10/25/24 17:27 Abnormal lab findings: Abnormal Labs 10/25/24 10/26/24 10/26/24 17:27 03:21 05:31 Neut % (Auto) 81.1 H Lymph % (Auto) 10.[address] [place] % (Auto) 8.9 H Baso % (Auto) 0.1 L Lymph # (Auto) 0.[address] [place] # (Auto) 0.7 H Sodium 136 L Carbon Dioxide 33 H 31 H Anion Gap 1 L -1 L Glucose 153 H Calcium 8.3 L Total Protein 6.0 L Urine Opiates Screen Positive A Ur Amphetamine Screen Positive A Diagnostic Findings Additional studies: ITS Impressions Chest X-Ray 10/25/24 17:57 IMPRESSION: Minimal infiltrate or atelectasis at the lung bases Chest CTA 10/25/24 18:26
[2024-10-26] MEDS: levoFLOXacin 750 MG/D5W 150 ML 750 MG/150 ML BAG 100 MG IVPB (12:59)
--- NOTE | 2024-10-26 14:22 | P.PNIM_ITS ---
Progress Note: A&P Assessment and Plan (1) Pulmonary nodules/lesions, multiple: Code(s): R91.8 - Other nonspecific abnormal finding of lung field Status: Acute Assessment and Plan: Pulmonology consulted for further evaluation and treatment * Atypical pain * CTA showing pulmonary embolism or aortic pathology. He has multiple relatively small bilateral nodules throughout the lungs with no evidence of bullous emphysema, interstitial lung disease, bronchiectasis or pleural disease * normal WBC, Procal WNL, CRP less then 0.5 * Empiric antibiotics on Rocephin and vancomycin in ED * Rocephin switch to Levaquin * Echo to rule out any endocarditis patient with history of methamphetamine use * blood cultures with NGTD * HIV pending * respiratory panel mycoplasma IgM. urine Legionella and urine pneumococcal pending * Plan to r/o septic emboli, metastatic cancer, bacterial pneumonia infection, or possible metastatic cancer * CT ABD/Pelvis 10/27 to assess for metastatic cancer * Pain management with Toradol, lidocaine patch, Dilaudid (2) Chest pain, pleuritic: Code(s): R07.81 - Pleurodynia Status: Acute Assessment and Plan: SEE ABOVE (3) Costochondral pain: Code(s): R07.89 - Other chest pain Status: Acute Assessment and Plan: SEE ABOVE (4) Continuous tobacco abuse: Code(s): Z72.0 - Tobacco use Status: Acute Assessment and Plan: * Nicotine patch * remove at night * smoking cessation (5) Methamphetamine use: Code(s): F15.10 - Other stimulant abuse, uncomplicated Status: Acute Assessment and Plan: * Encouraged immediate cessation * Echo to r/o endocarditis * Drug screen positive for opiates/methamphetamine Plan Code status: Full code per patient DVT prophylaxis: Lovenox Stress ulcer prophylaxis: NA PT/OT notes: Ambulatory Disposition: Patient was admitted for severe right atypical chest pain have multiple diagnosis need to be ruled out prior to discharge such as endocarditis, pneumonia, and cancer. Patient ambulatory on own and will be discharged home medically stable. Time Spent With Patient Time with patient: 15 - 25 minutes Subjective Date/time seen: 10/26/24 14:22 Interval history: Patient is a 44-year-old male who was admitted for further evaluation and treatment of severe sudden onset atypical right chest pain radiating to back worse with expiration. Reproducible on his back but no pain when palpated to right chest. He has multiple relatively small bilateral nodules throughout the lungs with no evidence of bullous emphysema, interstitial lung disease, bronchiectasis or pleural disease with possible diagnosis of Septic emboli, chronic methamphetamine use, metastatic cancer, bacterial pneumonia infection. 10/26/2024: Assumed Care Patient with mild improvement to pleuritic pain but still 7/10 with expiration. Pulmonary consulted for further evaluation. Patient denied chest pain, N/V, fever, chills, dizziness, or ABD pain. Labs and vitals stable. Review of Systems Review of Systems: All systems reviewed & are unremarkable except as noted in HPI and below Exam Narrative: * GENERAL: Alert and oriented x 3. No acute distress. * EYES: EOMI. No scleral icterus. PERRLA. * HEENT: Moist mucous membranes. * LUNGS: Clear to auscultation bilaterally. No accessory muscle use. Pain with expiration and upper right scapula pain with palpation * CARDIOVASCULAR: Regular rate and rhythm.. S1-S2 * ABDOMEN: Soft, non tenderness and non-distended. No palpable masses. * EXTREMITIES: No edema. Non-tender * SKIN: No rashes or lesions. Skin warm, dry. * NEUROLOGIC: No focal neurological deficits. CN II-XII grossly intact * PSYCHIATRIC: Appropriate mood and affect. Good judgement and insight. Objective Data Vital Signs Vital Signs: Vital Signs - 24 hr 10/25/24 17:26 10/25/24 17:40 10/25/24 18:21 Temperature 98 F Pulse Rate 74 79 Respiratory Rate 14 16 Blood Pressure 141/82 H 120/86 Pulse Oximetry 100 99 Oxygen Delivery Room Air Room Air 10/25/24 19:57 10/25/24 20:00 10/26/24 00:23 Temperature 97.9 F Pulse Rate 83 62 79 Respiratory Rate 14 18 Blood Pressure 115/79 120/74 Pulse Oximetry 99 100 Oxygen Delivery 10/26/24 04:00 10/26/24 04:00 10/26/24 08:00 Temperature 98.1 F Pulse Rate 68 66 Respiratory Rate 20 Blood Pressure 96/64 L Pulse Oximetry 97 Oxygen Delivery Room Air 10/26/24 08:00 10/26/24 08:51 10/26/24 12:00 Temperature 97.5 F L Pulse Rate 677 H 67 676 H Respiratory Rate 16 Blood Pressure 108/62 Pulse Oximetry 100 Oxygen Delivery Intake/Output Intake/Output: Intake & Output 10/23/24 10/24/24 10/25/24 10/26/24 23:59 23:59 23:59 23:59 Intake Total 50 1880 Balance 50 1880 Meds/Results Medications: Active Medications Generic Name Dose Route Start Last Admin Trade Name Freq PRN Reason Stop Dose Admin Acetaminophen 650 mg 10/25/24 19:48 Acetaminophen 325 Mg Tablet PO Q4H PRN Mild Pain (1-3) or Fever Hydrocodone Bitart/Acetaminophen 1 tab 10/26/24 02:37 Hydrocodone/Acetaminophen (*Crx) 5-325 Mg Tablet PO Q6H PRN Pain Rated 4-10 Diphenhydramine HCl 50 mg 10/25/24 22:13 Diphenhydramine Hcl Cap 25 Mg Capsule PO Q6H PRN Itching Enoxaparin Sodium 40 mg 10/26/24 09:00 10/26/24 08:19 Enoxaparin 40 Mg/0.4 Ml Syringe SUB-Q 40 mg DAILY STANISLAW Administration Hydromorphone HCl 0.5 mg 10/25/24 19:48 10/25/24 23:57 Hydromorphone Hcl Inj (*Crx) 1 Mg/Ml Syr IV PUSH 0.5 mg Q4H PRN Administration Breakthrough Pain Vancomycin HCl 1,250 mg in 250 mls @ 166.667 mls/hr 10/26/24 08:00 10/26/24 08:16 Vancomycin 1,250 Mg/Ns 250 Ml IVPB 166.67 mls/hr Q12H STANISLAW Administration Levofloxacin/Dextrose 750 mg in 150 mls @ 100 mls/hr 10/26/24 09:35 10/26/24 12:59 Levaquin 750 Mg/D5w 150 Ml IVPB 100 mls/hr QAM STANISLAW Administration Ketorolac Tromethamine 30 mg 10/26/24 01:00 10/26/24 12:58 Ketorolac 30 Mg/Ml Vial (*Bkc) IV PUSH 10/31/24 00:59 30 mg Q6H STANISLAW Administration Lidocaine 1 patch 10/26/24 01:40 10/26/24 08:16 Lidocaine 5% Patch TRANSDERM 1 patch DAILY STANISLAW Administration Nicotine 1 patch 10/25/24 22:20 10/26/24 08:16 Nicotine (*Pbkc) 21 Mg Patch TRANSDERM 1 patch DAILY STANISLAW Administration Ondansetron HCl 4 mg 10/25/24 19:48 Ondansetron Inj 4 Mg/2 Ml Vial IV PUSH Q4H PRN Nausea Perflutren Lipid Microsphere 0 ml 10/25/24 19:27 Perflutren Lipid Microspheres 1.5 Ml Vial Diluted To 10 Ml Total Volume IV PUSH 10/28/24 19:27 ONCE PRN adequate visualization Protocol Perflutren Lipid Microsphere 0 ml 10/26/24 11:20 Perflutren Lipid Microspheres 1.5 Ml Vial Diluted To 10 Ml Total Volume IV PUSH 10/29/24 11:20 ONCE PRN adequate visualization Protocol Radiology Results: ITS Impressions Chest X-Ray 10/25/24 17:57 IMPRESSION: Minimal infiltrate or atelectasis at the lung bases Chest CTA 10/25/24 18:26 IMPRESSION: No evidence of pulmonary arterial embolism Numerous bilateral pulmonary nodules; differential diagnosis includes septic emboli, or other infectious or metastatic process. Mild bilateral dependent and basilar lower lobe infiltrate or atelectasis Labs Labs: Laboratory Results - last 24 hr 10/25/24 10/25/24 10/25/24 17:27 19:56 20:00 WBC 8.3 RBC 5.00 Hgb 15.4 Hct 45.9 MCV 91.8 MCH 30.8 MCHC 33.6 RDW 12.3 Plt Count 327 MPV 9.1 Immature Gran % (Auto) 0.1 Neut % (Auto) 65.6 Lymph % (Auto) 22.2 Newberry % (Auto) 8.9 H Eos % (Auto) 2.7 Baso % (Auto) 0.5 Lymph # (Auto) 1.84 Newberry # (Auto) 0.7 H Eos # (Auto) 0.2 Baso # (Auto) 0.0 Abs Immat Gran (auto) 0.01 Absolute Neuts (auto) 5.4 Absolute Nucleated RBC 0.000 Nucleated RBC % 0.0 PT 12.7 INR 0.9 APTT 28.2 Sodium 138 Potassium 4.5 Chloride 104 Carbon Dioxide 33 H Anion Gap 1 L BUN 13 Creatinine 1.00 Estim Creat Clear Calc 80 Estimated GFR > 60 Glucose 98 Calcium 9.0 Total Bilirubin 0.5 AST 27 ALT 17 Alkaline Phosphatase 76 Troponin I < 0.012 C-Reactive Protein NT-Pro-B Natriuret Pep Total Protein 7.0 Albumin 4.3 Lipase 98 Procalcitonin Nasal MRSA (PCR) Not detected Urine Opiates Screen Urine Methadone Screen Ur Barbiturates Screen Ur Phencyclidine Scrn Ur Amphetamine Screen U Benzodiazepines Scrn Urine Cocaine Screen U Cannabinoids Screen Influenza A (RT-PCR) Negative Influenza B (RT-PCR) Negative RSV (RT-PCR) Negative SARS-CoV-2 RNA (RT-PCR) Negative 10/25/24 10/26/24 10/26/24 21:57 01:04 03:21 WBC RBC Hgb Hct MCV MCH MCHC RDW Plt Count MPV Immature Gran % (Auto) Neut % (Auto) Lymph % (Auto) Newberry % (Auto) Eos % (Auto) Baso % (Auto) Lymph # (Auto) Newberry # (Auto) Eos # (Auto) Baso # (Auto) Abs Immat Gran (auto) Absolute Neuts (auto) Absolute Nucleated RBC Nucleated RBC % PT INR APTT Sodium Potassium Chloride Carbon Dioxide Anion Gap BUN Creatinine Estim Creat Clear Calc Estimated GFR Glucose Calcium Total Bilirubin AST ALT Alkaline Phosphatase Troponin I < 0.012 < 0.012 C-Reactive Protein NT-Pro-B Natriuret Pep Total Protein Albumin Lipase Procalcitonin 0.1 Nasal MRSA (PCR) Urine Opiates Screen Positive A Urine Methadone Screen Negative Ur Barbiturates Screen Negative Ur Phencyclidine Scrn Negative Ur Amphetamine Screen Positive A U Benzodiazepines Scrn Negative Urine Cocaine Screen Negative U Cannabinoids Screen Negative Influenza A (RT-PCR) Influenza B (RT-PCR) RSV (RT-PCR) SARS-CoV-2 RNA (RT-PCR) 10/26/24 10/26/24 05:30 05:31 WBC 7.8 RBC 4.96 Hgb 14.9 Hct 46.6 MCV 94.0 MCH 30.0 MCHC 32.0 RDW 12.4 Plt Count 285 MPV 9.1 Immature Gran % (Auto) 0.3 Neut % (Auto) 81.1 H Lymph % (Auto) 10.5 L Newberry % (Auto) 4.9 Eos % (Auto) 3.1 Baso % (Auto) 0.1 L Lymph # (Auto) 0.82 L Newberry # (Auto) 0.4 Eos # (Auto) 0.2 Baso # (Auto) 0.0 Abs Immat Gran (auto) 0.02 Absolute Neuts (auto) 6.4 Absolute Nucleated RBC 0.000 Nucleated RBC % 0.0 PT INR APTT Sodium 136 L Potassium 3.9 Chloride 106 Carbon Dioxide 31 H Anion Gap -1 L BUN 11 Creatinine 1.00 Estim Creat Clear Calc 80 Estimated GFR > 60 Glucose 153 H Calcium 8.3 L Total Bilirubin 0.3 AST 23 ALT 14 Alkaline Phosphatase 67 Troponin I C-Reactive Protein < 0.5 NT-Pro-B Natriuret Pep < 20 Total Protein 6.0 L Albumin 3.5 Lipase Procalcitonin Nasal MRSA (PCR) Urine Opiates Screen Urine Methadone Screen Ur Barbiturates Screen Ur Phencyclidine Scrn Ur Amphetamine Screen U Benzodiazepines Scrn Urine Cocaine Screen U Cannabinoids Screen Influenza A (RT-PCR) Influenza B (RT-PCR) RSV (RT-PCR) SARS-CoV-2 RNA (RT-PCR) Imaging Radiologist's impression: EXAMINATION: CTA chest DATE: 10/25/2024 18:08 INDICATION: Sudden onset of right back and chest pain TECHNIQUE: Computed tomography angiography (CTA) of the chest was performed with 100 mL Omnipaque-350 intravenous contrast timed to evaluate the pulmonary arteries. Coronal maximum intensity projection 3D-reconstructions were created by the technologist. Automated exposure control and iterative reconstruction technique were employed. Exam dose: 288.92 mGy-cm total exam DLP. COMPARISON: 10/25/2024 2 view chest FINDINGS: There is diagnostic contrast enhancement of the pulmonary arteries and no evidence of pulmonary embolism. There are numerous scattered bilateral pulmonary nodules, the largest situated in the superior segment of the right lower lobe, measuring approximately 8 x 13.4 mm dimension. The remaining multiple nodules are subcentimeter size. Differential diagnosis includes septic emboli, granulomatous or other bacterial or fungal infectious process versus metastatic disease. There is mild bilateral dependent and basilar lower lobe atelectasis or infiltrate. Normal heart size. No pericardial or pleural effusion. No thoracic aortic aneurysm or dissection. No hilar or mediastinal mass lesion or lymphadenopathy. Normal size and homogeneous enhancement of the thyroid gland. No hepatic space-occupying mass lesion. The gallbladder is unremarkable. No bile duct or pancreatic duct dilatation. No pancreatic mass lesion or calcification is noted. Normal morphology of the adrenal glands. No renal mass lesion or renal calculus. Normal caliber of the abdominal aorta. No upper or mid abdominal mass lesion or adenopathy or ascites. There is prominent degenerative disc disease at C6-7. No suspicious osteolytic or osteoblastic lesions are noted. IMPRESSION: No evidence of pulmonary arterial embolism Numerous bilateral pulmonary nodules; differential diagnosis includes septic emboli, or other infectious or metastatic process. Mild bilateral dependent and basilar lower lobe infiltrate or atelectasis Quality VTE Prophylaxis VTE prophylaxis: pharmacologic ordered -Patient's previous records reviewed on admission -ER notes reviewed in detail on admission -discussed all findings and current treatment plan with patient/Family/POA -Consultations reviewed for recommendations -Patient's disposition for safe discharge discussed with case specialist Dictation performed by [employer] direct speech recognition software, therefore supervisor stave finishing variants and typographical errors may occur. Hospitalist MIPS Advance Care Plan I have confirmed that the patient's Advanced Care Plan is present, code status is documented, or surrogate decision maker is listed in patient medical record.: Yes Medication Reconciliation I have utilized all available resources to obtain, update and review the patients current medications (includes all prescriptions, OTC, herbals, cannabis, and nutritional supplements).: Yes The patient is not eligible for med reconciliation; the patient is in a emergent medical situation where delaying treatment would jeopardize the patients health.: No
--- NOTE | 2024-10-27 | ECHO_ITS ---
Patient Info Name: Yeyo Cornell Age: 44 years : 1980 Gender: Male Ht: 68 in Wt: 160 lbs BSA: 1.87 m2 HR: 67 bpm BP: 136 / 80 mmHg Heart Rhythm: Sinus Rhythm Technical Quality: Fair Exam Date: 10/27/2024 10:23 AM Exam Location: Echo Lab Patient Status: Inpatient Admit Date: 10/26/2024 Staff Ordering Physician: Donna Perkins APRN Correction Officer: Sydnie Ortega RDCS Attending Provider: Donna Perkins APRN Referring Physician: Gregorio HEATON; Exam Type: CA echo doppler color flow Study Info Indications - Septic emboli?/r/o endocarditis Complete two-dimensional, color flow and Doppler transthoracic echocardiogram is performed. Summary 1. Complete two-dimensional, color flow and Doppler transthoracic echocardiogram is performed. 2. Normal biventricular systolic function. 3. No definite valvular vegetations seen in this study. 4. No significant valvular disease in this study. 5. If clinically indicated or high suspicion, can proceed with transesophageal echocardiogram. Left Ventricle The left ventricle is normal in size and systolic function. The left ventricular ejection fraction is visually estimated to be 55-60%. Right Ventricle The right ventricle is normal in size and systolic function. Atrial Septum The atrial septum visually appears normal. Aortic Valve The aortic valve is trileaflet and opens well. There is no aortic regurgitation. Pulmonic Valve The pulmonic valve is normal. There is no pulmonic valve regurgitation. Mitral Valve The mitral valve is normal. There is no mitral regurgitation. Tricuspid Valve The tricuspid valve is normal. There is trace tricuspid regurgitation. Pericardium/Pleural Pericardium is normal in appearance with no evidence for significant pericardial effusion. Inferior Vena Cava Normal inferior vena cava with >50% collapse upon inspiration consistent with normal right atrial pressure, 3 mmHg. Aorta The aortic root at the level of the sinus of Valsalva measures 3.2 cm in diameter. Left Ventricular Outflow Tract Name Value Normal LVOT 2D LVOT Diameter 2.2 cm LVOT Doppler LVOT Peak Gradient 4 mmHg LVOT Mean Gradient 2 mmHg LVOT VTI 15 cm LVOT VTI/AV VTI Ratio 0.9 LVOT Stroke Volume 56 ml LVOT CO 4.0 l/min LVOT CI 2.1 l/min/m2 Pulmonic Valve Name Value Normal RVOT Doppler RVOT Peak Gradient 2 mmHg PV Doppler PV Peak Gradient 5 mmHg Mitral Valve Name Value Normal MV Doppler MV Decel Bledsoe 223 cm/s2 MV PHT 70 ms MV Area (PHT) 3.1 cm2 4.0-5.0 MV Diastolic Function MV E Peak Velocity 54 cm/s MV A Peak Velocity 57 cm/s MV E/A 0.9 MV Decel Time 243 ms MV Annular TDI MV E/e' (Septal) 7.9 <=8.0 MV E/e' (Lateral) 5.6 <=8.0 MV E/e' (Average) 6.7 Tricuspid Valve Name Value Normal TV Regurgitation Doppler TR Peak Velocity 189 cm/s TR Peak Gradient 14 mmHg Estimated PAP/RSVP RA Pressure 3 mmHg <=5 PA Systolic Pressure 17 mmHg <36 RV Systolic Pressure 17 mmHg <36 Aorta Name Value Normal Ascending Aorta Ao Root Diameter (MM) 3.7 cm Ao Root Diam Index (MM) 2.0 cm/m2 Aortic Valve Name Value Normal AV Doppler AV Peak Velocity 100 cm/s AV Peak Gradient 4 mmHg AV Mean Gradient 2 mmHg AV VTI 16 cm AV Area (Cont Eq VTI) 3.5 cm2 >=3.0 AV Area (Cont Eq Cirilo) 3.5 cm2 AV Regurgitation 2D LVOT Area 3.7 cm2 Ventricles Name Value Normal LV Dimensions 2D/MM IVS Diastolic Thickness (2D) 1.0 cm 0.6-1.0 LVID Diastole (2D) 4.3 cm 4.2-5.8 LVIW Diastolic Thickness (2D) 0.9 cm 0.6-1.0 LVID Systole (2D) 2.8 cm 2.5-4.0 LVOT Diameter 2.2 cm LV Mass (2D Cubed) 128.67 g 88.00-224.00 LV Mass Index (2D Cubed) 69 g/m2 49-115 Relative Wall Thickness (2D) 0.41 LV Fractional Shortening/Ejection Fraction 2D/MM LV Fractional Shortening (2D) 35 % 25-43 LV EF (2D Teicholz) 65 % 52-72 LV Diastolic Volume (4C MOD) 75 ml LV EF (4C MOD) 65 % LV Diastolic Volume (2C MOD) 61 ml LV EF (2C MOD) 67 % LV Diastolic Volume (BP MOD) 68 ml 62-150 LV Diastolic Volume Index (BP MOD) 36 ml/m2 34-74 LV Systolic Volume (BP MOD) 24 ml 21-61 LV Systolic Volume Index (BP MOD) 13 ml/m2 11-31 LV EF (BP MOD) 64 % 52-72 LV Diastolic Length (4C) 8.3 cm LV Systolic Length (4C) 6.7 cm LV Stroke Volume (4C MOD) 49 ml Atria Name Value Normal LA Dimensions LA Dimension (MM) 3.3 cm 3.0-4.1 LA Volume (4C A-L) 43 ml LA Volume (BP A-L) 42 ml RA Dimensions RA Area (4C) 15.6 cm2 <=18.0 Report Signatures
[2024-10-27] MEDS: KETOROLAC 30 MG/ML VIAL (*BKC) IV PUSH ×3 (00:17→12:11)
[2024-10-27 04:00] VITALS: PULSE 78
[2024-10-27 06:00] VITALS: BP 136/80; PULSE 67; RESP 20; TEMP 36.4; O2SAT 98
[2024-10-27 07:15] LABS: Estimated CRCL calculation 73 ml/min; Estimated Glomerular Filt Rate > 60
[2024-10-27 07:40] LABS: Vancomycin Trough 11.1 ug/mL (10.0-20.0)
[2024-10-27] MEDS: NICOTINE (*PBKC) 21 MG PATCH 1 PATCH TRANSDERM (07:56)
[2024-10-27 08:00] VITALS: PULSE 73; O2SAT 98
[2024-10-27] MEDS: VANCOMYCIN 1,750 MG/NS 500 ML 1,750 MG/500 ML BAG 250 MG IVPB (08:39)
[2024-10-27] MEDS: LIDOCAINE 5% PATCH 1 PATCH TRANSDERM (08:39)
[2024-10-27] MEDS: ENOXAPARIN 40 MG/0.4 ML SYRINGE SUB-Q (08:42)
[2024-10-27 10:34] LABS: Hematocrit 45.2 % (42.0-52.0); Hemoglobin 14.9 g/dL (14.0-18.0); Mean Corpuscular Hemoglobin 30.6 pg (26-34); Mean Corpuscular Volume 92.8 fl (80-100); Mean Platelet Volume 10.1 fl (7.4-10.4); Platelet Count Result 312 k/mm3 (150-375); Red Blood Count 4.87 M/mm3 (4.6-6.20); Red Cell Distribution Width 12.2 % (11.5-14.5); White Blood Count 6.4 K/mm3 (4.5-10.0)
[2024-10-27 10:57] LABS: Alanine Aminotransferase 15 U/L (6-50); Albumin Level 3.4 g/dL (3.5-5.1); Alkaline Phosphatase 71 U/L (38-126); Anion Gap 2 mmol/L (4-12); Aspartate Amino Transferase 25 U/L (17-59); Bilirubin,Total 0.3 mg/dL (0.2-1.3); Blood Urea Nitrogen 13 mg/dL (9-20); Calcium 8.5 mg/dL (8.4-10.2); Carbon Dioxide 26 mmol/L (22-30); Chloride 110 mmol/L (98-107); Estimated CRCL calculation 73 ml/min; Estimated Glomerular Filt Rate > 60; Glucose 92 mg/dL (65-110); Potassium 4.4 mmol/L (3.4-5.0); Sodium 138 mmol/L (137-145)
[2024-10-27 12:00] VITALS: PULSE 74
[2024-10-27] MEDS: levoFLOXacin 750 MG/D5W 150 ML 750 MG/150 ML BAG 100 MG IVPB (12:12)
[2024-10-27 14:25] VITALS: BP 130/80; PULSE 76; RESP 17; TEMP 36.5; O2SAT 100
--- NOTE | 2024-10-27 14:36 | P.PNIM_ITS ---
Progress Note: A&P Assessment and Plan (1) Pulmonary nodules/lesions, multiple: Code(s): R91.8 - Other nonspecific abnormal finding of lung field Status: Acute Assessment and Plan: Pulmonology consulted for further evaluation and treatment * Atypical pain * CTA showing pulmonary embolism or aortic pathology. He has multiple relatively small bilateral nodules throughout the lungs with no evidence of bullous emphysema, interstitial lung disease, bronchiectasis or pleural disease * normal WBC, Procal WNL, CRP less then 0.5 * Empiric antibiotics on Rocephin and vancomycin in ED * Rocephin switch to Levaquin * Echo to rule out any endocarditis patient with history of methamphetamine use * blood cultures with NGTD * HIV pending * respiratory panel mycoplasma IgM. urine Legionella and urine pneumococcal pending * Plan to r/o septic emboli, metastatic cancer, bacterial pneumonia infection, or possible metastatic cancer * CT ABD/Pelvis 10/27 to assess for metastatic cancer * Pain management with Toradol, lidocaine patch, Dilaudid 10/27/24: * CT ABD 7 mm pulmonary nodule need follow-up in [address] scan no other findings * Echo still pending * Normal WBC (2) Chest pain, pleuritic: Code(s): R07.81 - Pleurodynia Status: Acute Assessment and Plan: SEE ABOVE (3) Costochondral pain: Code(s): R07.89 - Other chest pain Status: Acute Assessment and Plan: appears to be more musculoskeletal was pain radiating from right scapula * Muscle relaxant added * 1 x dose Valium for muscle spasm (4) Continuous tobacco abuse: Code(s): Z72.0 - Tobacco use Status: Acute Assessment and Plan: * Nicotine patch * remove at night * smoking cessation (5) Methamphetamine use: Code(s): F15.10 - Other stimulant abuse, uncomplicated Status: Acute Assessment and Plan: * Encouraged immediate cessation * Echo to r/o endocarditis * Drug screen positive for opiates/methamphetamine Plan Code status: Full code per patient DVT prophylaxis: Lovenox Stress ulcer prophylaxis: NA PT/OT notes: Ambulatory Disposition: Patient was admitted for severe right atypical chest pain have multiple diagnosis need to be ruled out prior to discharge such as endocarditis, pneumonia, and cancer. Patient ambulatory on own and will be discharged home medically stable. Time Spent With Patient Time with patient: 15 - 25 minutes Subjective Date/time seen: 10/27/24 14:36 Interval history: Patient is a 44-year-old male who was admitted for further evaluation and treatment of severe sudden onset atypical right chest pain radiating to back worse with expiration. Reproducible on his back but no pain when palpated to right chest. He has multiple relatively small bilateral nodules throughout the lungs with no evidence of bullous emphysema, interstitial lung disease, bronchiectasis or pleural disease with possible diagnosis of Septic emboli, chronic methamphetamine use, metastatic cancer, bacterial pneumonia infection. 10/27/2024: Patient with some improvement to pain but still moderate with inspiration or any movement now states pain is coming from under RT scapula this likely muscle strain or spasm. CT ABD only showed 7 mm pulmonary Nodule that needs follow-up in [address] Review of Systems Review of Systems: 12 systems were reviewed with pertinent positives and negatives per HPI. Except as documented in the HPI, all other systems were reviewed and are negative. All systems reviewed & are unremarkable except as noted in HPI and below Exam Narrative: * GENERAL: Alert and oriented x 3. No acute distress. * EYES: EOMI. No scleral icterus. PERRLA. * HEENT: Moist mucous membranes. * LUNGS: Clear to auscultation bilaterally. No accessory muscle use. Pain with expiration and upper right scapula pain with palpation * CARDIOVASCULAR: Regular rate and rhythm.. S1-S2 * ABDOMEN: Soft, non tenderness and non-distended. No palpable masses. * EXTREMITIES: No edema. Non-tender * SKIN: No rashes or lesions. Skin warm, dry. * NEUROLOGIC: No focal neurological deficits. CN II-XII grossly intact * PSYCHIATRIC: Appropriate mood and affect. Good judgement and insight. Objective Data Vital Signs Vital Signs: Vital Signs - 24 hr 10/26/24 16:00 10/26/24 20:00 10/26/24 20:56 Temperature 97.7 F Pulse Rate 668 H 85 75 Respiratory Rate 18 Blood Pressure 113/80 Pulse Oximetry 97 Oxygen Delivery 10/27/24 04:00 10/27/24 06:00 10/27/24 08:00 Temperature 97.5 F L Pulse Rate 78 67 Respiratory Rate 20 Blood Pressure 136/80 Pulse Oximetry 98 98 Oxygen Delivery Room Air 10/27/24 08:00 10/27/24 12:00 10/27/24 14:25 Temperature 97.7 F Pulse Rate 73 74 76 Respiratory Rate 17 Blood Pressure 130/80 Pulse Oximetry 100 Oxygen Delivery Intake/Output Intake/Output: Intake & Output 10/24/24 10/25/24 10/26/24 10/27/24 23:59 23:59 23:59 23:59 Intake Total 50 3060 1999 Balance 50 3060 1999 Meds/Results Medications: Active Medications Generic Name Dose Route Start Last Admin Trade Name Freq PRN Reason Stop Dose Admin Acetaminophen 650 mg 10/25/24 19:48 Acetaminophen 325 Mg Tablet PO Q4H PRN Mild Pain (1-3) or Fever Hydrocodone Bitart/Acetaminophen 1 tab 10/26/24 02:37 Hydrocodone/Acetaminophen (*Crx) 5-325 Mg Tablet PO Q6H PRN Pain Rated 4-10 Cyclobenzaprine HCl 10 mg 10/27/24 14:34 Cyclobenzaprine Hcl 10 Mg Tablet PO Q8H PRN Muscle Spasm Diazepam 5 mg 10/27/24 14:34 Diazepam Inj (*Crx) 10 Mg/2 Ml Syringe IV PUSH 10/27/24 14:35 ONCE ONE Diphenhydramine HCl 50 mg 10/25/24 22:13 Diphenhydramine Hcl Cap 25 Mg Capsule PO Q6H PRN Itching Enoxaparin Sodium 40 mg 10/26/24 09:00 10/27/24 08:42 Enoxaparin 40 Mg/0.4 Ml Syringe SUB-Q 40 mg DAILY STANISLAW Administration Hydromorphone HCl 0.5 mg 10/25/24 19:48 10/25/24 23:57 Hydromorphone Hcl Inj (*Crx) 1 Mg/Ml Syr IV PUSH 0.5 mg Q4H PRN Administration Breakthrough Pain Levofloxacin/Dextrose 750 mg in 150 mls @ 100 mls/hr 10/26/24 09:35 10/27/24 12:12 Levaquin 750 Mg/D5w 150 Ml IVPB 100 mls/hr QAM STANISLAW Administration Vancomycin HCl 1,750 mg in 500 mls @ 250 mls/hr 10/27/24 09:00 10/27/24 08:39 Vancomycin 1,750 Mg/Ns 500 Ml IVPB 250 mls/hr Q12H STANISLAW Administration Ketorolac Tromethamine 30 mg 10/26/24 01:00 10/27/24 12:11 Ketorolac 30 Mg/Ml Vial (*Bkc) IV PUSH 10/31/24 00:59 30 mg Q6H STANISLAW Administration Lidocaine 1 patch 10/26/24 01:40 10/27/24 08:39 Lidocaine 5% Patch TRANSDERM 1 patch DAILY STANISLAW Administration Nicotine 1 patch 10/25/24 22:20 10/27/24 07:56 Nicotine (*Pbkc) 21 Mg Patch TRANSDERM 1 patch DAILY STANISLAW Administration Ondansetron HCl 4 mg 10/25/24 19:48 Ondansetron Inj 4 Mg/2 Ml Vial IV PUSH Q4H PRN Nausea Perflutren Lipid Microsphere 0 ml 10/25/24 19:27 Perflutren Lipid Microspheres 1.5 Ml Vial Diluted To 10 Ml Total Volume IV PUSH 10/28/24 19:27 ONCE PRN adequate visualization Protocol Perflutren Lipid Microsphere 0 ml 10/26/24 11:20 Perflutren Lipid Microspheres 1.5 Ml Vial Diluted To 10 Ml Total Volume IV PUSH 10/29/24 11:20 ONCE PRN adequate visualization Protocol Radiology Results: ITS Impressions Chest X-Ray 10/25/24 17:57 IMPRESSION: Minimal infiltrate or atelectasis at the lung bases Chest CTA 10/25/24 18:26 IMPRESSION: No evidence of pulmonary arterial embolism Numerous bilateral pulmonary nodules; differential diagnosis includes septic emboli, or other infectious or metastatic process. Mild bilateral dependent and basilar lower lobe infiltrate or atelectasis Abdomen/Pelvis CT 10/27/24 10:19 IMPRESSION: 1. Pulmonary nodules measuring up to 7 mm, which may be granulomatous disease or less likely metastatic disease. Noncontrast low-dose chest CT is recommended in 3 months. Labs Labs: Laboratory Results - last 24 hr 10/27/24 10/27/24 10/27/24 06:47 06:47 06:47 WBC 6.4 RBC 4.87 Hgb 14.9 Hct 45.2 MCV 92.8 MCH 30.6 MCHC 33.0 RDW 12.2 Plt Count 312 MPV 10.1 Sodium 138 Potassium 4.4 Chloride 110 H Carbon Dioxide 26 Anion Gap 2 L BUN 13 Creatinine 1.10 1.10 Estim Creat Clear Calc 73 73 Estimated GFR > 60 Glucose Calcium Total Bilirubin AST ALT Alkaline Phosphatase Total Protein Albumin Vancomycin Trough 10/27/24 06:47 WBC RBC Hgb Hct MCV MCH MCHC RDW Plt Count MPV Sodium Potassium Chloride Carbon Dioxide Anion Gap BUN Creatinine Estim Creat Clear Calc Estimated GFR > 60 Glucose 92 Calcium 8.5 Total Bilirubin 0.3 AST 25 ALT 15 Alkaline Phosphatase 71 Total Protein 6.0 L Albumin 3.4 L Vancomycin Trough 11.1 Quality VTE Prophylaxis VTE prophylaxis: pharmacologic ordered -Patient's previous records reviewed on admission -ER notes reviewed in detail on admission -discussed all findings and current treatment plan with patient/Family/POA -Consultations reviewed for recommendations -Patient's disposition for safe discharge discussed with shoe caser Dictation performed by [employer] direct speech recognition software, therefore human resources intern variants and typographical errors may occur. Hospitalist MIPS Advance Care Plan I have confirmed that the patient's Advanced Care Plan is present, code status is documented, or surrogate decision maker is listed in patient medical record.: Yes Medication Reconciliation I have utilized all available resources to obtain, update and review the patients current medications (includes all prescriptions, OTC, herbals, cannabis, and nutritional supplements).: Yes The patient is not eligible for med reconciliation; the patient is in a emergent medical situation where delaying treatment would jeopardize the patients health.: No
--- NOTE | 2024-10-28 11:03 | P.DS_ITS ---
DS: Admitting Diagnosis Discharge Date 10/27/24 Admitting Diagnosis Atypical chest pain DS: Discharge Diagnosis Discharge Diagnosis (1) Pulmonary nodules/lesions, multiple: Code(s): R91.8 - Other nonspecific abnormal finding of lung field Status: Acute Assessment and Plan: Pulmonology consulted for further evaluation and treatment * Atypical pain * CTA showing pulmonary embolism or aortic pathology. He has multiple relatively small bilateral nodules throughout the lungs with no evidence of bullous emphysema, interstitial lung disease, bronchiectasis or pleural disease * normal WBC, Procal WNL, CRP less then 0.5 * Empiric antibiotics on Rocephin and vancomycin in ED * Rocephin switch to Levaquin * Echo to rule out any endocarditis patient with history of methamphetamine use * blood cultures with NGTD * HIV pending * respiratory panel mycoplasma IgM. urine Legionella and urine pneumococcal pending * Plan to r/o septic emboli, metastatic cancer, bacterial pneumonia infection, or possible metastatic cancer * CT ABD/Pelvis 10/27 to assess for metastatic cancer * Pain management with Toradol, lidocaine patch, Dilaudid 10/27/24: * CT ABD 7 mm pulmonary nodule need follow-up in [address] scan no other findings * Echo still pending * Normal WBC (2) Chest pain, pleuritic: Code(s): R07.81 - Pleurodynia Status: Acute Assessment and Plan: SEE ABOVE (3) Costochondral pain: Code(s): R07.89 - Other chest pain Status: Acute Assessment and Plan: appears to be more musculoskeletal was pain radiating from right scapula * Muscle relaxant added * 1 x dose Valium for muscle spasm (4) Continuous tobacco abuse: Code(s): Z72.0 - Tobacco use Status: Acute Assessment and Plan: * Nicotine patch * remove at night * smoking cessation (5) Methamphetamine use: Code(s): F15.10 - Other stimulant abuse, uncomplicated Status: Acute Assessment and Plan: * Encouraged immediate cessation * Echo to r/o endocarditis * Drug screen positive for opiates/methamphetamine DS: Summary Hospital Course Reason for hospitalization: atypical chest pain Hospital Course: H&P: medical Record 44-year-old male with a past medical history of methamphetamine abuse but is otherwise previously healthy who presented to the ER with chest pain that started when he was driving to work. The patient reports that he was in his usual state of health when he suddenly developed pain in his right upper back that radiated to his right chest. The pain is worse with deep breathing but more so when he tries to exhale completely. He reports that if pain becomes quite severe when he tries to blow out all of his air. He has not had any associated cough, congestion, fevers or chills. He denies any known injury. 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 He reports the pain is a 10/10 in intensity. It is worse with certain movements. It is not worse with palpation of the chest. But it has acute reproducibility when palpated just medial to the right scapula scapula at the level of about the 5th rib/vertebrae. He denies any recent rashes, abscess is or known infection. He does smoke methamphetamine intermittently with his last use about a week ago. He adamantly denies IV drug use. He states that he has smoked methamphetamines on and off for 20 years. He has smoked about a pack of cigarettes per day since he was a young teenager. patient was started on empirical antibiotics Rocephin and vancomycin he had a consult to pulmonology for any further evaluation treatment however this likely did appear to be musculoskeletal patient was being worked up to determine the etiology of his pulmonary nodules including endocarditis or any other respiratory pathogen had outstanding echocardiogram at time of him leaving against medical advice. He did however have a CTA abdomen to rule out cancer which did show a 7 mm nodule chest that will need follow-up in 3 months. patient was not willing to stay until echocardiogram was read and to ensure there was no vegetation he left against m edical advice he was provided with risks such cardiac arrest or even however he chose not to stay for final reading. I received phone call from his nurse that he left AMA. Status at Discharge Functional status at discharge: independent ambulation Time Spent with Patient Time attestation: Total time spent providing and/or coordinating discharge services: Time spent: Greater than 30 minutes Exam Narrative: Prior to leaving AMA * GENERAL: Alert and oriented x 3. No acute distress. * EYES: EOMI. No scleral icterus. PERRLA. * HEENT: Moist mucous membranes. * LUNGS: Clear to auscultation bilaterally. No accessory muscle use. Pain with expiration and upper right scapula pain with palpation * CARDIOVASCULAR: Regular rate and rhythm.. S1-S2 * ABDOMEN: Soft, non tenderness and non-distended. No palpable masses. * EXTREMITIES: No edema. Non-tender * SKIN: No rashes or lesions. Skin warm, dry. * NEUROLOGIC: No focal neurological deficits. CN II-XII grossly intact * PSYCHIATRIC: Appropriate mood and affect. Good judgement and insight. DS: Data Data Completed and Pending Labs on day of discharge: Preliminary micro results at discharge 10/25/24 19:59 Blood Culture - Preliminary Blood 10/25/24 19:57 Blood Culture - Preliminary Blood Imaging Radiologist's impression: Radiology Results: ITS Impressions Chest X-Ray 10/25/24 17:57 IMPRESSION: Minimal infiltrate or atelectasis at the lung bases Chest CTA 10/25/24 18:26 IMPRESSION: No evidence of pulmonary arterial embolism Numerous bilateral pulmonary nodules; differential diagnosis includes septic emboli, or other infectious or metastatic process. Mild bilateral dependent and basilar lower lobe infiltrate or atelectasis Discharge Plan Discharge Consulting providers: Fadi Mario; Panchito Barrow; Toby Hall; Ajay Interiano V.; Yrn Dumont Patient Disposition: Left Against Medical Advice Patient Language: Maori Discharge Medications: No Action No Home Medications Date of admission: 10/26/24 07:42 Primary Care Provider: PHYSICIAN,VEHICLE CARE SPECIALIST Admitting Provider: Kelsey Anderson Attending physician on admission: Donna Perkins Condition: Stable Hospitalist MIPS Heart Failure (Exclusion) Patient has history of Heart Transplant or Left Ventricular Assistive Device?: No IF YES, STOP HERE Heart Failure (Qualifier) Patient has current or prior documentation of LVEF less than or equal to 40%, or mod/servere depressed LVSF?: No IF NO, STOP HERE
[2024-10-28 15:38] LABS: HIV 1 RNA PCR NOT DETECTED (NOT DETECTED); HIV 1 RNA PCR NOT DETECTED copies/mL (NOT DETECTED)
[2024-10-30 15:03] LABS: Pneumococcal Antigen Urine NOT DETECTED
[2024-10-30 20:18] LABS: Adenovirus DNA Not Detected (Not Detected); Chlamydophila pneumoniae Not Detected (Not Detected); Coronavirus 229E Not Detected (Not Detected); Coronavirus HKU1 Not Detected (Not Detected); Coronavirus NL63 Not Detected (Not Detected); Coronavirus OC43 Not Detected (Not Detected); Human Metapneumovirus Not Detected (Not Detected); Human Parainfluenza Virus 1 Not Detected (Not Detected); Human Parainfluenza Virus 2 Not Detected (Not Detected); Human Parainfluenza Virus 3 Not Detected (Not Detected); Human Parainfluenza Virus 4 Not Detected (Not Detected); Human RSV B Not Detected (Not Detected); Influenza A Not Detected (Not Detected); Influenza B Not Detected (Not Detected); Mycoplasma pneumoniae Not Detected (Not Detected); Rhinovirus/Enterovirus Not Detected (Not Detected)
[2024-10-31 01:14] LABS: Legionella pneumophila Ag Ur NOT DETECTED
== END 2024-10-27 15:48 | disposition left against medical advice (07) ==
LOC: ANHED 19:59 → ANH3MED 10-26 07:54
PROVIDERS: Emergency Medicine; Internal Medicine Pulmonary Disease; Admitting Provider Internal Medicine; Emergency Provider Student in an Organized Health Care Education/Training Program; Visit Provider Nurse Practitioner Family
DX: R07.89 Other chest pain (principal); R07.81 Pleurodynia; R91.8 Other nonspecific abnormal finding of lung field; F15.10 Other stimulant abuse, uncomplicated; F17.210 Nicotine dependence, cigarettes, uncomplicated; J30.9 Allergic rhinitis, unspecified; K02.9 Dental caries, unspecified; Z20.822 Contact with and (suspected) exposure to COVID-19
CPT/HCPCS: 36415; 71046; 71275; 74177; 80053; 80202; 80307; 82565; 83690; 83880; 84145; 84484; 85025; 85027; 85610; 85730; 86140; 86738; 87040; 87449; 87536; 87633; 87637; 87641; 87899; 93005; 93306; 96365; 96366; 96367; 96372; 96374; 96375; 96376; 99285; A9270; G0378; J0696; J1171; J1650; J1885; J1956; J2270; J2405; J3370; Q9967